=== PATIENT | female | born 1950 | race Caucasian/White ===

== ENCOUNTER 2020-12-31 19:07 | Emergency (ER) | payer OTHER ==
[~2020-12-31] VITALS: Ht 162.6 cm; Wt 82.7 kg
[2020-12-31 19:32] VITALS: BP 174/83; Ht 162.6 cm; Wt 82.7 kg
[2020-12-31 20:01] LABS: HEMATOCRIT 38.9 % (36.0-48.0); HEMOGLOBIN 13.6 g/dL (12-16); MCHC 34.9 g/dL (31.0-37.0); MCV 83.1 fL (80.0-100.0); MEAN PLATELET VOLUME 9.7 fL (7.4-10.4); PLATELET COUNT 108 10x3/uL (130-400); RBC 4.68 10x6/uL (4.00-5.40); RDW 13.3 % (11.5-14.5); WBC 5.8 10x3/uL (4.8-10.8)
[2020-12-31 20:11] LABS: APTT 41.3 SECONDS (22.8-39.4); INR 1.18 (0.85-1.17); PROTIME 13.9 SECONDS (11.6-15.0)
[2020-12-31 20:12] LABS: ANION GAP 12.2 mmol/L (8-16); CALCIUM 9.6 mg/dL (8.5-10.1); CARBON DIOXIDE 29.9 mmol/L (21.0-32.0); CREATININE - SERUM 0.9 mg/dL (0.6-1.3); D-DIMER-QUANTITATIVE 0.49 ug/mLFEU (0.20-0.54); POTASSIUM - SERUM 3.1 mmol/L (3.5-5.1)
[2020-12-31 20:20] LABS: ALBUMIN 4.4 g/dL (3.4-5.0); BILIRUBIN - TOTAL 0.43 mg/dL (0.2-1.3); PROTEIN - SERUM 8.5 g/dL (6.4-8.2)
[2020-12-31 20:42] LABS: LYMPHOCYTES 68 % (15-50); MONOCYTES 15 % (2-11); NEUTROPHILS 18 % (40-80); PLATELET ESTIMATE DECREASED
[2020-12-31] MEDS ORDERED: VIBRAMYCIN 100100 MG PO (22:59)
[2020-12-31] MEDS ORDERED: KLOR-CON 1010 MEQ PO (22:59)
== END 2020-12-31 23:20 | disposition home or self-care (01) ==
LOC: D.ER 19:07
PROVIDERS: Emergency Medicine
DX: E87.6 Hypokalemia (principal); R25.2 Cramp and spasm; E11.9 Type 2 diabetes mellitus without complications; S30.866A Insect bite (nonvenomous) of unspecified external genital organs, female, initial encounter; I10 Essential (primary) hypertension